=== PATIENT | male | born 1995 | race Caucasian/White ===

== ENCOUNTER 2017-09-23 17:52 | Emergency (ER) | payer MEDICAID, OTHER ==
[2017-09-23 17:53] VITALS: BMI 23.7
[2017-09-23 18:00] VITALS: BP 167/96; PULSE 64; RESP 20; TEMP 97.9; O2SAT 99
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
--- NOTE | 2017-09-23 18:53 | CT ---
PROCEDURE: CT HEAD WITHOUT CONTRAST. HISTORY: headache COMPARISON: None available. TECHNIQUE: Axial computed tomography images were obtained through the head/brain without intravenous contrast. Radiation dose: Total exam DLP = 726.33 mGy-cm. This CT exam was performed using one or more of the following dose reduction techniques: Automated exposure control, adjustment of the mA and/or kV according to patient size, and/or use of iterative reconstruction technique. FINDINGS: HEMORRHAGE: No intracranial hemorrhage. BRAIN: No mass effect or edema. No atrophy or chronic microvascular ischemic changes. VENTRICLES: No hydrocephalus. CALVARIUM: Unremarkable. PARANASAL SINUSES: Unremarkable as visualized. No significant inflammatory changes. MASTOID AIR CELLS: Unremarkable as visualized. No inflammatory changes. OTHER FINDINGS: Suspect chronic deformity of the left orbital floor and left lamina papyracea. IMPRESSION: No acute intracranial pathology identified. Suspect chronic fracture deformity of the left orbital floor left lamina papyracea. Correlate clinically.
== END 2017-09-23 19:53 | disposition home or self-care (01) ==
LOC: C.ER 17:52
DX: R51 Headache (principal)

== ENCOUNTER 2018-05-21 19:19 | Emergency (ER) | payer MEDICAID ==
[2018-05-21 19:19] VITALS: BMI 23.7
[2018-05-21 19:44] VITALS: RESP 20; TEMP 99
[2018-05-21] MEDS ORDERED: Tdap Vaccine 0.5 ml Vial (10-64 yrs) IM ONE ×2 (19:48→19:55)
--- NOTE | 2018-05-21 19:59 | C.PDOC ---
History Of Present Illness 23 year old male patient presents to the ER with c/o a puncture wound on the bottom of his left foot. Patient states he was at work and he stepped on a nail through his work boots. Patient denies UTD tetanus shot, numbness, or weakness. Time Seen by Provider: 05/21/18 19:39 Chief Complaint (Nursing): Lower Extremity Problem/Injury History/Exam Limitations: no limitations Onset/Duration Of Symptoms: Mins Current Symptoms Are (Timing): Still Present Location Of Injury: Left: Foot Past Medical History Reviewed: Historical Data, Nursing Documentation, Vital Signs Vital Signs: Last Vital Signs Temp 99 F 05/21/18 20:07 Pulse 68 05/21/18 20:07 Resp 20 05/21/18 20:07 BP 120/80 05/21/18 20:07 Pulse Ox 100 05/21/18 22:54 - Medical History PMH: Fractures (skull left eye orbit) Family History: States: Unknown Family Hx - Social History Hx Alcohol Use: No Hx Substance Use: No - Immunization History Hx Tetanus Toxoid Vaccination: No Hx Influenza Vaccination: No Hx Pneumococcal Vaccination: No Review Of Systems Except As Marked, All Systems Reviewed And Found Negative. Musculoskeletal: Positive for: Foot Pain (puncture wound on left foot) Neurological: Negative for: Weakness, Numbness Physical Exam - Physical Exam Appears: Non-toxic, No Acute Distress Skin: Normal Color, Warm, Dry Head: Atraumatic, Normacephalic Eye(s): bilateral: Normal Inspection Ear(s): Bilateral: Normal Cardiovascular: Rhythm Regular Respiratory: Normal Breath Sounds Extremity: Normal ROM, Capillary Refill (<2 sec), No Deformity, Other (small puncture area on plantar aspect of left foot with erythema. ) Pulses: Left Dorsalis Pedis: Normal, Right Dorsalis Pedis: Normal Neurological/Psych: Oriented x3, Normal Speech, Normal Motor, Normal Sensation, Normal Reflexes Gait: Steady ED Course And Treatment O2 Sat by Pulse Oximetry: 100 (RA) Pulse Ox Interpretation: Normal Progress Note: Impression: Puncture wound due to nail on plantar aspect of left foot. Plans: -- tetanus booster, PO abx. Reassess: puncture wound is small, erythematous, no active bleeding, no FB. Wound is cleaned with normal saline. Patient is resting comfortably. NAD. Patient is advised to come back if condition worsen. 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 - Scribe Statement The provider has reviewed the documentation as recorded by the Kristina Salguero Do All medical record entries made by the Scribe were at my direction and personally dictated by me. I have reviewed the chart and agree that the record accurately reflects my personal performance of the history, physical exam, medical decision making, and the department course for this patient. I have also personally directed, reviewed, and agree with the discharge instructions and disposition.
[2018-05-21 20:09] VITALS: BP 120/80; PULSE 68
[2018-05-21 22:48] VITALS: O2SAT 100
== END 2018-05-21 20:07 | disposition home or self-care (01) ==
LOC: C.ER 19:19
DX: S91.332A Puncture wound without foreign body, left foot, initial encounter (principal); W45.0XXA Nail entering through skin, initial encounter